=== PATIENT | female | born 1945 | race Caucasian/White ===

== ENCOUNTER 2016-10-31 06:11 | Day surgery (SDC) | payer MEDICARE ==
[2016-10-31] MEDS ORDERED: ECOTRIN PO ONE (06:30)
[2016-10-31 07:00] LABS: Basophils % (Auto) 0.5 % (0.0-1.8); Eosinophils % (Auto) 3.9 % (0.0-4.3); Hematocrit 39.9 % (30.3-42.9); Hemoglobin 13.3 gm/dl (10.1-14.3); Mean Corpuscular HGB Conc 33 % (30-34); Mean Corpuscular Hemoglobin 29 pg (28-32); Mean Corpuscular Volume 87 fl (79-97); Platelet Count 228 K/mm3 (140-440); Red Blood Count 4.61 M/mm3 (3.65-5.03); Red Cell Distribution Width 15.5 % (13.2-15.2); White Blood Count 6.9 K/mm3 (4.5-11.0)
[2016-10-31] MEDS ORDERED: NACL 0.9% 500 ML 500 ML IV SCH (07:00)
[2016-10-31 07:10] LABS: INR 0.97 (0.87-1.13)
[2016-10-31 07:57] LABS: Anion Gap TNR mmol/L; Blood Urea Nitrogen TNR mg/dL (7-17); Carbon Dioxide TNR mmol/L (22-30); Chloride TNR mmol/L (98-107); Potassium TNR mmol/L (3.6-5.0); Sodium TNR mmol/L (137-145)
[2016-10-31 07:58] LABS: BUN/Creatinine Ratio TNR; Calcium TNR mg/dL (8.4-10.2); Glucose TNR mg/dL (65-100)
[2016-10-31 08:37] LABS: Anion Gap 16 mmol/L; Blood Urea Nitrogen 20 mg/dL (7-17); Calcium 8.7 mg/dL (8.4-10.2); Carbon Dioxide 23 mmol/L (22-30); Chloride 104.5 mmol/L (98-107); Glucose 100 mg/dL (65-100); Potassium 4.3 mmol/L (3.6-5.0); Sodium 139 mmol/L (137-145)
[2016-10-31] MEDS ORDERED: HEPARIN/NS 5000 UNIT/500ML(CATH LAB) 1,000 ML IR ONE (09:03)
[2016-10-31] MEDS ORDERED: NITROGLYCERIN SYRINGE 3 ML ONE (09:04)
[2016-10-31] MEDS: VERSED ONE ×2 (09:16→09:45)
[2016-10-31] MEDS: SUBLIMAZE ONE ×2 (09:16→09:45)
[2016-10-31] MEDS: XYLOCAINE 2% INFILTRATI ONE ×2 (09:17→09:47)
[2016-10-31] MEDS: CALAN ONE ×2 (09:17→09:50)
[2016-10-31] MEDS: HEPARIN 10,000 UNITS/10 ML ONE ×2 (09:18→09:50)
--- NOTE | 2016-10-31 10:18 | Discharge Summary ---
Short Stay Discharge Plan Activity: advance as tolerated Weight Bearing Status: Full Weight Bearing Diet: low fat, low cholesterol, low salt Wound: keep clean and dry Special Instructions: no heavy lifting (3 days) Follow up with: MARLENA JAMES MD [Primary Care Provider] - 7 Days JEMAL MENESES MD [Staff Physician] - 7 Days
[2016-10-31] MEDS ORDERED: NACL 0.9% 1000 ML 1,000 ML IV SCH (11:00)
--- NOTE | 2016-10-31 11:03 | Cardiac Catherization Report ---
REASON FOR PROCEDURE: Abnormal thallium stress test. PROCEDURE: The patient was prepped and draped in a sterile fashion after informed consent. The right radial cath site was prepped and draped after a negative Johnny's test. The right radial artery was entered using the Seldinger technique followed by placement of a 5-Syrian hydrophilic sheath. Routine radial cocktail was administered via the sheath. Selective left and right coronary angiography was performed. A 3.5 left Nader catheter was used for left coronary angiography. A #4 right Nader was used for right coronary angiography. The right Nader was used for left ventricle angiography. FINDINGS: HEMODYNAMICS: Left ventricular end-diastolic pressure was less than 20, following coronary angiography. Ascending aortic pressure was 123/71. There was no significant pressure gradient on pullback across the aortic valve. CORONARY ANGIOGRAPHY: The left main coronary artery was angiographically normal. The left anterior descending artery and its diagonal branches were free of significant disease. The circumflex artery was a large system that was free of significant disease. The right coronary artery was a small caliber, but dominant vessel, this vessel contained mild luminal irregularities in its mid segment. Left ventricular systolic function was at lower limits of normal, ejection fraction 50-55%. CONCLUSIONS: 1. No significant coronary artery disease. 2. Well preserved left ventricular systolic function, ejection fraction 50-55%. RECOMMENDATION: Risk factor modification and medical therapy. [facility]# [id number] CA/NTS
[2016-10-31 14:02] VITALS: BP 137/72
== END 2016-10-31 15:30 | disposition home or self-care (01) ==
LOC: OPU 06:11
PROVIDERS: ATTEND Internal Medicine Cardiovascular Disease
DX: R94.39 Abnormal result of other cardiovascular function study (principal); F32.9 Major depressive disorder, single episode, unspecified; E11.9 Type 2 diabetes mellitus without complications; I10 Essential (primary) hypertension; E66.9 Obesity, unspecified; Z68.28 Body mass index [BMI] 28.0-28.9, adult; Z72.89 Other problems related to lifestyle; Z82.49 Family history of ischemic heart disease and other diseases of the circulatory system; Z83.3 Family history of diabetes mellitus
CPT/HCPCS: 36415; 80048; 85025; 85610; 85730; 93005; 93010; 93458; C1894; J1644; J2250; J3010; J7040; Q9967